=== PATIENT | female | born 1990 | race Caucasian/White ===

== ENCOUNTER 2023-10-24 10:35 | Inpatient (IN) | payer OTHER ==
[~2023-10-24 10:35] MED LIST: ALBUTEROL NEB (CONC) 2.5 MG/0.5 ML INHALATION ONE; CALCIUM GLUCONATE IN NACL 2 GM/100 ML IVPB ONE; Dextrose 25% Syringe (PEDs) 10 ML SYRINGE IVP ONE; FUROSEMIDE 10 MG/ML 10 ML VIAL ONE; INSULIN REGULAR 100 UNIT/ML VIAL (IV) ONE; SODIUM CHLORIDE 0.9% NEBULIZ 3 ML INHALATION ONE; SODIUM ZIRCONIUM CYCLOSILICATE 10 GM PACKET ONE
[2023-10-24] MEDS ORDERED: ONDANSETRON 4 MG/2 ML VIAL ONE (11:59)
[2023-10-24] MEDS ORDERED: hydrALAZINE HCL 20 MG/ML 1 ML VIAL ONE ×2 (12:06→23:59)
[2023-10-24] MEDS ORDERED: carvediloL 12.5 MG TAB ONE ×2 (13:49→20:40)
[2023-10-24] MEDS ORDERED: NIFEdipine XL 30 MG TAB.ER.24 PO ONE ×2 (13:49→20:40)
[2023-10-24] MEDS ORDERED: PANTOPRAZOLE 40 MG TABLET PO ONE (13:50)
[2023-10-24] MEDS ORDERED: DIALYSIS DEX INTRAPERIT ONE (23:59)
[2023-10-25] MEDS ORDERED: ACETAMINOPHEN TAB 325 MG TAB ONE ×2 (07:42→17:28)
[2023-10-25] MEDS ORDERED: PANTOPRAZOLE 40 MG TABLET PO ONE (07:44)
[2023-10-25] MEDS ORDERED: NIFEdipine XL 30 MG TAB.ER.24 PO ONE (07:44)
[2023-10-25] MEDS ORDERED: carvediloL 12.5 MG TAB ONE ×2 (07:44→17:28)
[2023-10-25] MEDS ORDERED: hydrALAZINE HCL 20 MG/ML 1 ML VIAL ONE ×2 (07:58→16:14)
[2023-10-25] MEDS ORDERED: FUROSEMIDE 80 MG TAB ONE ×2 (08:34→16:08)
[2023-10-25] MEDS ORDERED: LOSARTAN 50 MG TAB ONE (12:03)
[2023-10-25] MEDS ORDERED: DIALYSIS DEX INTRAPERIT ONE (23:59)
[2023-10-26] MEDS ORDERED: ACETAMINOPHEN TAB 325 MG TAB ONE ×2 (00:21→06:31)
[2023-10-26] MEDS ORDERED: PANTOPRAZOLE 40 MG TABLET PO ONE ×2 (06:28→08:48)
[2023-10-26] MEDS ORDERED: DIALYSIS DEX INTRAPERIT ONE (08:00)
[2023-10-26] MEDS ORDERED: carvediloL 12.5 MG TAB ONE (08:48)
[2023-10-26] MEDS ORDERED: FUROSEMIDE 80 MG TAB ONE (08:48)
--- NOTE | 2023-12-02 10:40 | CT ---
EXAM: CT Head Without Intravenous Contrast CLINICAL HISTORY: AMS TECHNIQUE: Axial computed tomography images of the head/brain without intravenous contrast. CTDI is 49.2 mGy and DLP is 1109.7 mGy-cm. This CT exam was performed using one or more of the following dose reduction techniques: automated exposure control, adjustment of the mA and/or kV according to patient size, and/or use of iterative reconstruction technique. COMPARISON: No relevant prior studies available. FINDINGS: No acute intracranial hemorrhage. No midline shift or mass effect. The territorial maguire-white matter differentiation is maintained throughout. The ventricles and sulci are commensurate with age. The visualized orbits appear grossly unremarkable. The calvarium is intact. The visualized paranasal sinuses and mastoid air cells are grossly clear. IMPRESSION: No acute intracranial hemorrhage, midline shift, or mass effect. Radiologist: Andres Plunkett MD Electronically Signed: 10/24/23 03:49 Study ready at 01:59 and initial results transmitted at 03:49 Results also transmitted to Film Room, Film Room @ [phone] (Fax) [facility]
== END 2023-10-26 11:55 | disposition home or self-care (01) | DRG 682 ==
LOC: 3SCARD 10:35
PROVIDERS: ADMIT Hospitalist; ATTEND Hospitalist
PROC: 3E1M39Z Irrigation of Peritoneal Cavity using Dialysate, Percutaneous Approach (ICD-10-PCS; principal; 2023-10-24)
DX: I12.0 Hypertensive chronic kidney disease with stage 5 chronic kidney disease or end stage renal disease (principal); G93.41 Metabolic encephalopathy; N18.6 End stage renal disease; I16.1 Hypertensive emergency; N18.9 Chronic kidney disease, unspecified; E87.5 Hyperkalemia; Z91.158 Patient's noncompliance with renal dialysis for other reason
CPT/HCPCS: 70450; 87070; 87205; 89050; 90935; 94640; 96365; 96375; 99285